=== PATIENT | female | born 1985 | race Caucasian/White ===

== ENCOUNTER 2016-11-20 17:01 | Emergency (ER) | payer OTHER ==
[2016-11-20 18:05] VITALS: BP 117/65
--- NOTE | 2016-11-20 18:23 | UC ---
Throat Pain/Nasal Henrique HPI - HPI Summary HPI Summary: URI sx for 14 days past few days has had increased sinus pain , pain in teeth - History of Current Complaint Chief Complaint: UCRespiratory Stated Complaint: RESP COMPLAINT Time Seen by Provider: 11/20/16 18:19 Hx Obtained From: Patient Hx Last Menstrual Period: one week ago ?: No Onset/Duration: Gradual Onset, Lasting Days, Worse Since - past couple of days Severity: Moderate Cough: None Associated Signs & Symptoms: Positive: Sinus Discomfort, Nasal Discharge - Allergies/Home Medications Allergies/Adverse Reactions: Allergies Allergy/AdvReac Type Severity Reaction Status Date / Time Gluten Meal Allergy Diarrhea Verified 11/20/16 18:04 Penicillin G Allergy Hives/Diff. Verified 11/20/16 18:04 Breathing/I tching GLUTEN Allergy Diarrhea Uncoded 11/20/16 18:04 Home Medications: Home Medications Acetaminophen TAB* [Tylenol TAB*] 11/20/16 [History] PMH/Surg Hx/FS Hx/Imm Hx Previously Healthy: Yes Endocrine History Of: Denies: Diabetes Cardiovascular History Of: Denies: Hypertension, Pacemaker/ICD Respiratory History Of: Denies: Asthma - Surgical History Surgical History: None - Family History Known Family History: Positive: None - Social History Occupation: Employed Full-time Lives: With Family Alcohol Use: Occasionally Substance Use Type: None Smoking Status (MU): Never Smoked Tobacco Review of Systems Constitutional: Chills, Fatigue Skin: Negative Eyes: Negative ENT: Ear Ache, Nasal Discharge Respiratory: Negative Cardiovascular: Negative Gastrointestinal: Negative Genitourinary: Negative Motor: Negative Neurovascular: Negative Musculoskeletal: Negative Neurological: Headache Psychological: Negative All Other Systems Reviewed And Are Negative: Yes Physical Exam Triage Information Reviewed: Yes Appearance: Well-Appearing, No Pain Distress, Well-Nourished Vital Signs: Initial Vital Signs Temp 97.4 F 11/20/16 18:00 Pulse 62 11/20/16 18:00 Resp 18 11/20/16 18:00 BP 117/65 11/20/16 18:00 Pulse Ox 98 11/20/16 18:00 Vital Signs Reviewed: Yes Eye Exam: Normal Eyes: Positive: Conjunctiva Clear ENT Exam: Other ENT: Positive: Normal ENT inspection, Hearing grossly normal, Pharynx normal, Nasal congestion, Nasal drainage, TMs normal. Negative: Tonsillar swelling, Tonsillar exudate, Trismus, Muffled/hoarse voice Dental Exam: Normal Neck exam: Normal Neck: Positive: Supple, Nontender, No Lymphadenopathy Respiratory Exam: Normal Respiratory: Positive: Chest non-tender, Lungs clear, Normal breath sounds, No respiratory distress, No accessory muscle use Cardiovascular Exam: Normal Cardiovascular: Positive: RRR, No Murmur, Pulses Normal, Brisk Capillary Refill Musculoskeletal Exam: Normal Musculoskeletal: Positive: Strength Intact, ROM Intact, No Edema Neurological Exam: Normal Neurological: Positive: Alert, Muscle Tone Normal Psychological Exam: Normal Skin Exam: Normal Throat Pain/Nasal Course/Dx - Course Assessment/Plan: zithromax, flonase, increase fluids follow with pcp re-check prn - Differential Dx/Diagnosis Differential Diagnosis/HQI/PQRI: Otitis Media, Pharyngitis, Sinusitis, URI Provider Diagnoses: Acute RHinnosinusitis Discharge - Discharge Plan Condition: Stable Disposition: HOME Prescriptions: Azithromycin TAB* [Zithromax TAB (Z-NICOLAS) 250 mg #6 tabs] 2 tab PO .TODAY, THEN 1 DAILY #1 nicolas Fluticasone NASAL SPRAY 50MCG* [Flonase NASAL SPRAY 50MCG*] 2 spray BOTH NARES DAILY #1 btl Patient Education Materials: Sinusitis (ED), How to Use Nasal [place] (ED) Referrals: Lizz Dunn NP [Nurse Practitioner] - 7 Days No Primary Care Phys,NOPCP [Primary Care Provider] -
== END 2016-11-20 18:37 | disposition home or self-care (01) ==
LOC: UCEAST 17:01
DX: J01.90 Acute sinusitis, unspecified (principal); Z88.0 Allergy status to penicillin
CPT/HCPCS: 99212; G0463

== ENCOUNTER 2017-08-16 03:53 | Inpatient (IN) | payer OTHER ==
[2017-08-16] MEDS ORDERED: OBEPIDURAL* 250 ML ONE (06:46)
[2017-08-16 06:59] LABS: Hematocrit 37 % (35-47); Hemoglobin 13.2 g/dl (12.0-16.0); Mean Corpuscular HGB Conc 35 g/dl (31-36); Mean Corpuscular Hemoglobin 34 pg (27-31); Mean Corpuscular Volume 96 fL (80-97); Mean Platelet Volume 8 um3 (7.4-10.4); Red Blood Count 3.91 10^6/ul (4.0-5.4); Red Cell Distribution Width 12 % (10.5-15); White Blood Count 9.9 10^3/ul (3.5-10.8)
[2017-08-16] MEDS ORDERED: Famotidine TAB* 20 MG PO PRN (07:10)
[2017-08-16] MEDS ORDERED: Phenylephrine IV* 40 MCG/ML 10 ML SYRINGE IV PUSH PRN ×2 (07:10)
[2017-08-16] MEDS ORDERED: OBEPIDURAL* 250 ML EPIDURAL SCH (08:00)
[2017-08-16] MEDS ORDERED: Oxytocin in LR* 20 UNITS/1,000 ML BAG IVPB ONE (12:06)
[2017-08-16] MEDS ORDERED: Oxytocin in LR* 20 UNITS/1,000 ML BAG IVPB SCH ×2 (12:10→13:50)
[2017-08-16] MEDS ORDERED: Glycerin ADULT SUPP PR PRN (13:47)
[2017-08-16] MEDS ORDERED: Acetaminophen TAB* 325 MG PO PRN (13:47)
[2017-08-16] MEDS ORDERED: Dibucaine 1% 28.35 GM TUBE PR PRN (13:47)
[2017-08-16] MEDS ORDERED: Witch Hazel PAD* JAR TOPICAL PRN (13:47)
[2017-08-16] MEDS: Docusate CAP* 100 MG PO SCH ×2 (14:13→20:40)
[2017-08-16] MEDS: Ibuprofen TAB* 600 MG PO PRN (14:13)
[2017-08-16] MEDS ORDERED: Simethicone TAB* 80 MG TAB.CHEW PO SCH (17:30)
[2017-08-17 07:20] LABS: Hematocrit 36 % (35-47); Hemoglobin 12.6 g/dl (12.0-16.0); Mean Corpuscular HGB Conc 35 g/dl (31-36); Mean Corpuscular Hemoglobin 34 pg (27-31); Mean Corpuscular Volume 96 fL (80-97); Mean Platelet Volume 8 um3 (7.4-10.4); Red Blood Count 3.73 10^6/ul (4.0-5.4); Red Cell Distribution Width 13 % (10.5-15); White Blood Count 14.5 10^3/ul (3.5-10.8)
[2017-08-17] MEDS: Ibuprofen TAB* 600 MG PO PRN ×2 (08:10→20:24)
[2017-08-17] MEDS: Docusate CAP* 100 MG PO SCH ×3 (08:11→20:23)
[2017-08-17] MEDS ORDERED: Ferrous Gluconate TAB* 324 MG TAB PO SCH (09:00)
[2017-08-18] MEDS: Ibuprofen TAB* 600 MG PO PRN ×2 (02:53→09:16)
[2017-08-18 08:12] VITALS: BP 106/77
[2017-08-18] MEDS: Docusate CAP* 100 MG PO SCH (09:16)
== END 2017-08-18 10:30 | disposition home or self-care (01) | DRG 775 ==
LOC: MCHOBOUT 03:53 → MCHOB 05:11
PROVIDERS: ADMIT Midwife; ATTEND Midwife
PROC: 10E0XZZ Delivery of Products of Conception, External Approach (ICD-10-PCS; principal; 2017-08-16)
PROC: 10907ZC Drainage of Amniotic Fluid, Therapeutic from Products of Conception, Via Natural or Artificial Opening (ICD-10-PCS; 2017-08-16)
PROC: 4A1HXCZ Monitoring of Products of Conception, Cardiac Rate, External Approach (ICD-10-PCS; 2017-08-16)
DX: O71.89 Other specified obstetric trauma (principal); O76 Abnormality in fetal heart rate and rhythm complicating labor and delivery; Z37.0 Single live birth; Z88.0 Allergy status to penicillin; Z3A.39 39 weeks gestation of pregnancy
CPT/HCPCS: 36415; 85027; A9270-GY

== ENCOUNTER 2019-08-06 13:43 | Inpatient (IN) | payer OTHER ==
[2019-08-06] MEDS ORDERED: Bupivacaine 0.25% SDV PF* 10 ML VIAL INJ ONE (13:59)
[2019-08-06] MEDS ORDERED: Dibucaine 1% 28.35 GM TUBE PR PRN (14:23)
[2019-08-06] MEDS ORDERED: OXYTOCIN* 10 UNITS/ML 1 ML VIAL IM ONE (14:23)
[2019-08-06] MEDS ORDERED: Glycerin ADULT SUPP PR PRN (14:23)
[2019-08-06] MEDS ORDERED: Witch Hazel PAD* JAR TOPICAL PRN (14:23)
--- NOTE | 2019-08-06 14:44 | HP ---
General Information - Reason for Visit , 33yo, IUP@40+1, here in active labor - General Information Maternal Age: 32 Grav: 1 Para: 0 SAB: 0 IEA: 0 Estimated Due Date: 08/17/17 Determined By: Early Ultrasound Gestational Age in Weeks/Days: 40+1 Maternal Blood Type and Rh: A Positive - Results this Serology/RPR Result: Non-Reactive Rubella Result: Immune HBsAg Result: Negative HIV Result: Negative GBS Culture Result: Negative Past Medical History Delivery History: Hx Uncomplicated Vaginal Delivery Pertinent Past Medical History: Non-Contributory Past Medical History Comment: No current medical conditions Past Surgical History Comment: [place] teeth Family History Comment: PGM: d/t lung cancer MGF: d/t lung cancer - Antepartal Records Antepartal Records: Reviewed, Uncomplicated Review of Systems Constitutional: Uncomfortable CV Complaint: No Respiratory: Shortness of Breath: No Gastrointestinal: No Nausea/Vomiting Genitourinary: Leaking Fluid, No Dysuria Musculoskeletal: Contractions Neurological: No Headache Movement: Normal Exam Allergies/Adverse Reactions: Allergies gluten Allergy (Verified 01/08/19 09:24) Dizziness Penicillins Allergy (Verified 01/08/19 09:24) Hives/Diff.Breathing/Itching BP 117/66, HR 74, 97.8, 20, 100% - Measurements Weight: 145 lb Pre- Weight: 130 lb - Exam Breast: Breast Exam Deferred CVA: No CVA Tenderness Extremities: No Edema Heart: Normal Rhythm/Heart Sounds HEENT: No Significant Findings Lungs: Clear Bilaterally - Abdominal Exam Abdomen Exam: Non-Tender - Ultrasound/Biophysical Profile Ultrasound Status: Not Done Targeted Exam Findings Estimated Weight: 7.5lbs Cervical Exam: 7cm Effacement: 90% Station: -1 Presenting Part: Vertex Membrane Status: SROM Bleeding/Discharge: Bloody Show EFM Findings - External Monitor Findings Baseline Heart Rate: 125 Contractions: Regular Assessment/Plan - Assessment 33yo, , IUP@40+1 here in active labor GBS negative, RI, A+, VSS Intermittent auscultation d/t to pt transitioning Regular contractions Uncomplicated - Plan Plan: Admit - Anticipate Vaginal Delivery Plan Comment: Admit to L&D Try for epidural, though pt moving quickly through labor Anticipate - Date/Time of Admission Date of Admission: 08/06/19 Time of Admission: 02:00
[2019-08-06] MEDS ORDERED: Lactated Ringers 1000 ML Bag* 1,000 ML IV ONE (14:57)
[2019-08-06] MEDS ORDERED: Buffered Lidocaine 1% SYRIN* 1 ML/SYRINGE INTRADERM ONE (14:57)
[2019-08-06] MEDS ORDERED: Lactated Ringers 1000 ML Bag* 1,000 ML IV SCH ×2 (15:00)
--- NOTE | 2019-08-06 15:01 | PROCNOTE ---
[facility] OB: Delivery Note - Delivery A Date of : 08/06/19 Time of : 14:05 [place] Sex: Female Weight at : 7 lb 1.6 oz Score 1 Minute: 9 Score 5 Minutes: 9 Gestational Age in Weeks and Days at Delivery: 142 Weeks and 5 Days Delivery Method: Spontaneous Vaginal Labor: Spontaneous Did Patient attempt ?: N/A, No Previous Amniotic Fluid: Clear Estimated Blood Loss: 400 Anesthesia/Analgesia: None - Nursery Level of Nursery: Regular/Bedside - Perineum Perineal Injury: None/Intact - Events Delivery Events of Note: Pitocin Only After Delivery, Precipitous Delivery - Additional Delivery Notes Additional Delivery Notes: G2, now P2 at 40+1 weeks admitted in active labor. SROM at 0500 with onset of regular contractions at 1300. She quickly progressed to complete and complete, and began spontaneously pushing at 1355 with good maternal effort. Slow controlled delivery of head OA to MILENA at 1405. Shoulders followed with next push, passed to maternal abdomen. Spontaneous cry, HR > 110. Apgars 9 and 9. Cord doubly clamped and cut by infant's father once pulsations ceased, at least 3 minutes. Placenta delivered spontaneous and lucie at 1410. Pitocin, 10mg, IM given. Fundus firm with massage. Perineum and vagina carefully inspected and found to be intact. Female , mother and baby stable at time of note. EBL = 400cc
[2019-08-06] MEDS: Ibuprofen TAB* 600 MG PO PRN (15:51)
[2019-08-06] MEDS: Acetaminophen TAB* 325 MG PO PRN ×2 (15:51→20:11)
[2019-08-06] MEDS ORDERED: Simethicone TAB* 80 MG TAB.CHEW PO SCH (17:30)
[2019-08-06 19:00] LABS: Urine Benzodiazepine Screen None Detected (None Detect); Urine Opiates Screen None Detected (None Detect)
[2019-08-06] MEDS: Docusate CAP* 100 MG PO SCH (20:11)
[2019-08-07] MEDS: Ibuprofen TAB* 600 MG PO PRN ×4 (00:58→21:40)
[2019-08-07] MEDS: Acetaminophen TAB* 325 MG PO PRN ×2 (01:00→12:51)
[2019-08-07 08:13] LABS: ABS Basophils 0.1 10^3/ul (0-0.2); ABS Eosinophils 0.1 10^3/ul (0-0.6); ABS Lymphocytes 1.7 10^3/ul (1.0-4.8); ABS Monocytes 0.6 10^3/ul (0-0.8); Eosinophil % 1.6 %; Hematocrit 35 % (35-47); Hemoglobin 12.4 g/dL (12.0-16.0); Lymphocyte % 19.5 %; Mean Corpuscular HGB Conc 36 g/dL (31-36); Mean Corpuscular Hemoglobin 34 pg (27-31); Mean Corpuscular Volume 95 fL (80-97); Mean Platelet Volume 7.3 fL (7.4-10.4); Platelet Count 198 10^3/uL (150-450); Red Blood Count 3.66 10^6 /uL (3.70-4.87); Red Cell Distribution Width 13 % (10-15); White Blood Count 8.5 10^3/uL (3.5-10.8)
[2019-08-07] MEDS ORDERED: Ferrous Gluconate TAB* 324 MG TAB PO SCH (09:00)
[2019-08-07] MEDS ORDERED: Influenza VAC *QUAD* 2019-20* 0.5 ML SYRINGE IM ONE (09:00)
[2019-08-07] MEDS: Docusate CAP* 100 MG PO SCH ×3 (09:27→21:40)
[2019-08-08 08:11] VITALS: BP 100/62
[2019-08-08] MEDS: Docusate CAP* 100 MG PO SCH (08:13)
[2019-08-08] MEDS: Ibuprofen TAB* 600 MG PO PRN (08:13)
== END 2019-08-08 10:37 | disposition home or self-care (01) | DRG 807 ==
LOC: MCHOBOUT 13:43 → MCHOB 13:51
PROVIDERS: ADMIT Advanced Practice Midwife; ATTEND Advanced Practice Midwife
PROC: 10E0XZZ Delivery of Products of Conception, External Approach (ICD-10-PCS; principal; 2019-08-06)
DX: O48.0 Post-term pregnancy (principal); Z37.0 Single live birth; Z3A.40 40 weeks gestation of pregnancy
CPT/HCPCS: 36415; 80307; 85025; 90686; A9270-GY; J2590; J3490